=== PATIENT | male | born 1995 ===

== ENCOUNTER 2021-03-20 11:16 | Emergency (ER) | payer OTHER ==
[~2021-03-20] VITALS: Ht 172.7 cm; Wt 80.4 kg
[2021-03-20 12:58] VITALS: BP 142/92
== END 2021-03-20 14:09 | disposition left against medical advice (07) ==
LOC: EMS 11:16
DX: K63.89 Other specified diseases of intestine (principal); Z53.21 Procedure and treatment not carried out due to patient leaving prior to being seen by health care provider